=== PATIENT | female | born 1965 | race Caucasian/White ===

== ENCOUNTER 2018-04-26 16:54 | Emergency (ER) | payer OTHER ==
[~2018-04-26] VITALS: Ht 170.2 cm; Wt 86.2 kg
[2018-04-26 17:36] LABS: ABSOLUTE BASOPHILS 0.1 thou/uL (0.0-0.2); ABSOLUTE EOSINOPHILS 0.1 thou/uL (0.0-0.7); ABSOLUTE LYMPHOCYTES 2.2 thou/uL (0.8-5.3); ABSOLUTE MONOCYTES 0.4 thou/uL (0.0-1.2); ABSOLUTE NEUTROPHILS 6.7 thou/uL (1.6-8.1); BASOPHILS 0.9 %; EOSINOPHILS 0.9 %; HEMATOCRIT 41.7 % (37.0-47.0); HEMOGLOBIN 14.6 gm/dL (12.0-15.0); LYMPHOCYTES 23.3 %; MCH 32.6 pg (26.0-34.0); MCHC 35.1 g/dL (28.0-37.0); MCV 92.8 fL (80.0-100.0); MONOCYTES 4.7 %; MPV 8.2 fl. (7.2-11.1); NUCLEATED RBCS 0 /100WBC; PLATELET COUNT* 241 thou/uL (150-400); POLYS 70.2 %; RBC 4.49 mil/uL (4.20-5.00); RDW-CV 12.9 % (10.5-14.5); WBC 9.5 thou/uL (4.0-11.0)
[2018-04-26 17:45] LABS: CALCIUM 9.4 mg/dL (8.5-10.1); CREATININE 0.8 mg/dL (0.6-1.3); POTASSIUM 3.8 mmol/L (3.5-5.1)
[2018-04-26 17:50] LABS: ALBUMIN 4.2 g/dL (3.4-5.0); TOTAL BILIRUBIN 0.7 mg/dL (<0.1-1.0); TOTAL PROTEIN 7.6 g/dL (6.4-8.2)
[2018-04-26] MEDS ORDERED: ZOFRAN ODT4 MG PO (18:47)
[2018-04-26] MEDS ORDERED: BUTALB-APAP-CA1 EACH PO (18:47)
[2018-04-26 19:46] VITALS: BP 150/69
== END 2018-04-26 19:46 | disposition home or self-care (01) ==
LOC: M.ERS 16:54
PROVIDERS: Personal Emergency Response Attendant
DX: G43.909 Migraine, unspecified, not intractable, without status migrainosus (principal); N80.9 Endometriosis, unspecified; Z88.6 Allergy status to analgesic agent

== ENCOUNTER 2018-04-29 11:17 | Inpatient (IN) | payer OTHER ==
[~2018-04-29] VITALS: Ht 170.2 cm; Wt 90.5 kg
[~2018-04-29 11:17] MED LIST: BUTALB-APAP-CA1 EACH PO; ZOFRAN ODT4 MG PO
[2018-04-29 11:23] VITALS: BP 141/69
[2018-04-29 12:00] LABS: ABSOLUTE BASOPHILS 0.1 thou/uL (0.0-0.2); ABSOLUTE LYMPHOCYTES 2.3 thou/uL (0.8-5.3); ABSOLUTE MONOCYTES 0.6 thou/uL (0.0-1.2); ABSOLUTE NEUTROPHILS 8.5 thou/uL (1.6-8.1); BASOPHILS 0.7 %; EOSINOPHILS 0.4 %; HEMATOCRIT 42.4 % (37.0-47.0); HEMOGLOBIN 14.6 gm/dL (12.0-15.0); LYMPHOCYTES 20.1 %; MCHC 34.4 g/dL (28.0-37.0); MCV 93.2 fL (80.0-100.0); MONOCYTES 4.9 %; MPV 8.1 fl. (7.2-11.1); NUCLEATED RBCS 0 /100WBC; PLATELET COUNT* 241 thou/uL (150-400); POLYS 73.9 %; RBC 4.55 mil/uL (4.20-5.00); RDW-CV 12.8 % (10.5-14.5); WBC 11.4 thou/uL (4.0-11.0)
[2018-04-29 12:09] LABS: CALCIUM 9.2 mg/dL (8.5-10.1); CREATININE 0.9 mg/dL (0.6-1.3); POTASSIUM 3.8 mmol/L (3.5-5.1)
[2018-04-29 12:13] LABS: ALBUMIN 3.9 g/dL (3.4-5.0); TOTAL BILIRUBIN 0.6 mg/dL (<0.1-1.0); TOTAL PROTEIN 7.4 g/dL (6.4-8.2)
[2018-04-29 13:57] VITALS: BP 130/76
[2018-04-29 14:05] VITALS: BP 139/73
[2018-04-29 15:10] LABS: CHOLESTEROL 203 mg/dL (<200); HDL CHOLESTEROL 43 mg/dL (>40); LDL CHOLESTEROL 128 mg/dL (<100); TC:HDL 4.7 Ratio (Not establshd); TRIGLYCERIDE 160 mg/dL (<150); VLDL 32 mg/dL (<40)
--- NOTE | 2018-04-29 15:10 | NUR ---
RECIEVIED REPORT FROM PREMA, RN IN ER OF EXPECTED ADMISSION AT 1345- DX: MIGRAINE/STROKE- PT ARRIVED TO UNIT VIA CART, SBA TO BED- SOFTWARE ENGINEER WEB APPLICATIONS PLACED ORDERED, TRACING SB- PT A&O X4, BUT DROWSY- PT NOTED TO BE WITHDRAW WITH QUESTIONING ANSWERS QUESTIONS WITH EYES CLOSED WITH SLOW RESPONSE- LCTA, RESP EVEN AND UN-LABORED- VS 98.7 18 139/73 61 98% ON RA-ABDOMEN SOFT/ROUND/NON-TENDER, BS X4 QUADS- LAST BM REPORTED THIS AM- IV NOTED TO RIGHT AC INTACT, IVF STARTED AT 100ML/HR ORDERED- STAT COMPAZINE AND BENADRYL GIVEN PRESCIBED- [facility] ON ADMISSION NOTED AT 1 FOR SLIGHT LEFT FACIAL DROP- NEURO CONSULT CALLED- PT NOTED WITH C/D/I SKIN, TATOOS NOTED- RATES PAIN TO HEAD 3/10- AND MOTHER AT SIDE AT TIME OF ADMISSION- CALL LIGHT AND PERSONAL BELONGINGS WITH IN REACH- ALL NEEDS MET AT THIS TIME-WCTM
[2018-04-29 15:12] LABS: SERUM ASSESSMENT CLEAR
[2018-04-29 15:36] VITALS: BP 138/55
[2018-04-29 19:30] VITALS: BP 146/64
[2018-04-29 22:38] VITALS: BP 145/69
--- NOTE | 2018-04-29 22:56 | NUR ---
PT TO BE TRANSFERRED TO [facility]. REPORT GIVEN TO ALINA NI THERE. CHART COPIED, XRAY REPORTS SENT TO THEM BY CLOUD. FAMILY AWARE AND CONSENT GIVEN FOR TRANSFER. DISCHARGE PER [facility] WITH S[employer] EFFECTS SPECIALIST.
--- NOTE | 2018-04-30 13:19 | NUR ---
PLEASE NOTE PT WAS DISCHARGED FROM HOSPITAL ON 04/29/18 BEFORE P.T. ORDERS COULD BE COMPLETED.
== END 2018-04-29 23:01 | disposition short-term general hospital (02) | DRG 66 ==
LOC: M.ERS 11:17 → M.2W 12:55 → M.TBA-ER 12:55 → M.2W 14:12
PROVIDERS: Emergency Medicine Emergency Medical Services; ADMIT Internal Medicine
DX: I60.9 Nontraumatic subarachnoid hemorrhage, unspecified (principal); R29.810 Facial weakness; Z88.8 Allergy status to other drugs, medicaments and biological substances

== ENCOUNTER 2018-08-10 17:21 | Emergency (ER) | payer OTHER ==
[~2018-08-10] VITALS: Ht 170.2 cm; Wt 81.7 kg
[2018-08-10] MEDS ORDERED: KEPPRA 500 MG500 M1 PO (17:28)
[2018-08-10] MEDS ORDERED: PREDNISONE 20 M20 M1 PO (18:15)
[2018-08-10 18:25] VITALS: BP 100/59
== END 2018-08-10 18:26 | disposition home or self-care (01) ==
LOC: M.ERS 17:21
DX: L53.9 Erythematous condition, unspecified (principal); T36.8X5A Adverse effect of other systemic antibiotics, initial encounter; N80.9 Endometriosis, unspecified; Z86.73 Personal history of transient ischemic attack (TIA), and cerebral infarction without residual deficits; Z88.1 Allergy status to other antibiotic agents; Y92.89 Other specified places as the place of occurrence of the external cause

== ENCOUNTER 2020-02-22 12:44 | Emergency (ER) | payer OTHER ==
[~2020-02-22] VITALS: Ht 170.2 cm; Wt 63.5 kg
[~2020-02-22 12:44] MED LIST changes: +KEPPRA 500 MG500 M1 PO; +PREDNISONE 20 M20 M1 PO
[2020-02-22] MEDS ORDERED: LISINOPRIL2.5 MG PO (12:57)
[2020-02-22] MEDS ORDERED: IMOVAX RABIE2.5 UNIT IM (13:51)
[2020-02-22 14:15] VITALS: BP 129/65
== END 2020-02-22 14:15 | disposition home or self-care (01) ==
LOC: M.ERS 12:44
DX: S81.831A Puncture wound without foreign body, right lower leg, initial encounter (principal); Z88.1 Allergy status to other antibiotic agents; W55.01XA Bitten by cat, initial encounter; Y93.89 Activity, other specified; Y92.89 Other specified places as the place of occurrence of the external cause; Y99.8 Other external cause status

== ENCOUNTER → 2020-02-25 | Outpatient (CLI) | payer OTHER ==
[~2020-02-25] MED LIST changes: +IMOVAX RABIE2.5 UNIT IM; +LISINOPRIL2.5 MG PO
== END ==
LOC: M.INFUS 12:39
DX: Z23 Encounter for immunization (principal); S81.851D Open bite, right lower leg, subsequent encounter; W55.01XD Bitten by cat, subsequent encounter

== ENCOUNTER → 2020-02-29 | Outpatient (CLI) | payer OTHER | LOC: M.INFUS 17:01 | PROVIDERS: ATTEND Family Medicine | DX: Z23 Encounter for immunization (principal); S81.851D Open bite, right lower leg, subsequent encounter; W55.01XD Bitten by cat, subsequent encounter ==

== ENCOUNTER → 2020-03-07 | Outpatient (CLI) | payer OTHER | LOC: M.OPS 14:22 | DX: Z23 Encounter for immunization (principal); Z20.3 Contact with and (suspected) exposure to rabies ==

== ENCOUNTER → 2020-03-21 | Outpatient (CLI) | payer OTHER | LOC: M.ERS 13:56 → EDSTATUS 14:09 → M.OPS 14:18 | PROVIDERS: ATTEND Physician Assistant | DX: Z23 Encounter for immunization (principal); S81.851D Open bite, right lower leg, subsequent encounter; Z20.3 Contact with and (suspected) exposure to rabies; W55.01XD Bitten by cat, subsequent encounter ==

== ENCOUNTER 2021-04-23 10:14 | Emergency (ER) | payer OTHER ==
[~2021-04-23] VITALS: Ht 170.2 cm; Wt 77.1 kg
[2021-04-23 10:38] LABS: ABSOLUTE EOSINOPHILS 0.1 thou/uL (0.0-0.7); ABSOLUTE LYMPHOCYTES 1.3 thou/uL (0.8-5.3); ABSOLUTE MONOCYTES 0.3 thou/uL (0.0-1.2); ABSOLUTE NEUTROPHILS 4.1 thou/uL (1.6-8.1); HEMOGLOBIN 13.5 gm/dL (12.0-15.0); MONOCYTES 5.1 %; MPV 7.8 fl. (7.2-11.1); NUCLEATED RBCS 0 /100WBC; RDW-CV 12.7 % (10.5-14.5); WBC 5.8 thou/uL (4.0-11.0)
[2021-04-23 10:40] LABS: BASOPHILS 0.7 %; EOSINOPHILS 1.9 %; HEMATOCRIT 39.8 % (37.0-47.0); MCH 31.7 pg (26.0-34.0); MCHC 33.9 g/dL (28.0-37.0); MCV 93.3 fL (80.0-100.0); PLATELET COUNT* 195 thou/uL (150-400); POLYS 70.3 %; RBC 4.26 mil/uL (4.20-5.00)
[2021-04-23 11:01] LABS: CREATININE 0.8 mg/dL (0.6-1.3); POTASSIUM 4.2 mmol/L (3.5-5.1)
[2021-04-23 11:06] LABS: ALBUMIN 3.9 g/dL (3.4-5.0); TOTAL BILIRUBIN 0.6 mg/dL (<0.1-1.0); TOTAL PROTEIN 7.1 g/dL (6.4-8.2)
[2021-04-23] MEDS ORDERED: MECLIZINE HCL25 M1 PO (11:24)
[2021-04-23 11:36] VITALS: BP 114/72
--- NOTE | 2021-04-23 14:24 | EKG ---
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: : 1965 Requested By: Torito Cartagena Order Number: [id number] MD: Emory Dodson Measurements Intervals [place] Rate: 64 P: 44 WV: 148 QRS: 8 QRSD: 92 T: 48 QT: 485 QTc: 501 Interpretive Statements Sinus rhythm Low voltage, precordial leads Slightly delayed R wave progression over the anterior precordium No previous ECG available for comparison Electronically Signed On 04-23-2021 14:23:57 INFORMATICIST by Emory Dodson [email or web address] <ELECTRONICALLY SIGNED> By: Emory Dodson MD, [facility] 04/23/21 1423 1045 1045 Emory Dodson MD, [facility] /EPI
== END 2021-04-23 11:36 | disposition home or self-care (01) ==
LOC: M.ERS 10:14
PROVIDERS: Physician Assistant
DX: H81.10 Benign paroxysmal vertigo, unspecified ear (principal); Z86.73 Personal history of transient ischemic attack (TIA), and cerebral infarction without residual deficits; Z79.899 Other long term (current) drug therapy; Z88.1 Allergy status to other antibiotic agents